=== PATIENT | male | born 1975 | race Caucasian/White ===

== ENCOUNTER 2016-07-16 19:44 | Emergency (ER) | payer SELFPAY ==
[~2016-07-16] VITALS: Ht 165.1 cm; Wt 83.9 kg
[2016-07-16 22:30] LABS: BASOPHILS % (AUTO) 0.5 % (0.0-2.0); DIFF TOTAL % 100 %; EOSINOPHILS # (AUTO) 0.1 /CMM (0.0-0.7); EOSINOPHILS % (AUTO) 2.1 % (0.0-6.0); HEMATOCRIT 44 % (39-51); HEMOGLOBIN 14.5 g/dL (13.5-17.5); LYMPHOCYTES # (AUTO) 1.7 /CMM (0.8-4.8); LYMPHOCYTES % (AUTO) 27.7 % (20.0-44.0); MEAN CORPUSCULAR HEMOGLOBIN 30 PG (26.0-33.0); MEAN CORPUSCULAR HGB CONC 33 g/dl (31.0-36.0); MEAN CORPUSCULAR VOLUME 90 fL (80-96); MONOCYTES # (AUTO) 0.5 /CMM (0.1-1.30); NEUTROPHILS # (AUTO) 3.8 /CMM (1.8-8.9); NEUTROPHILS % (AUTO) 61.7 % (43.0-81.0); PLATELET COUNT (AUTO) 216 /CMM (150-450); RED BLOOD CELL COUNT(AUTO) 4.85 MIL/uL (4.5-6.0); WHITE BLOOD COUNT (AUTO) 6.1 K/uL (4.3-11.0)
[2016-07-16] MEDS ORDERED: Magnesium 1 GM/2 ML VIAL IV ONE (22:30)
[2016-07-16 22:37] LABS: ANION GAP 11 (5-14); CALCIUM, SERUM 8.3 mg/dL (8.5-10.1); CARBON DIOXIDE 28 mmol/L (21-32); CHLORIDE 108 mmol/L (98-107); GFR 82 mL/min (>60); GLUCOSE 143 mg/dL (74-106); POTASSIUM 3.4 mmol/L (3.5-5.1); SODIUM SERUM 144 mmol/L (136-145); UREA NITROGEN, BLOOD 13 mg/dL (7-18)
[2016-07-16 22:43] LABS: ACETAMINOPHEN 0 ug/ml (10-30); ALANINE AMINOTRANSFERASE 32 U/L (12-78); ALBUMIN 3.5 g/dL (3.4-5.0); ASPARTATE AMINOTRANSFERASE 24 U/L (15-37); BILIRUBIN,DIRECT 0.1 mg/dL (0.0-0.2); BILIRUBIN,TOTAL 0.4 mg/dL (0.2-1.0); INDIRECT BILIRUBIN 0.3 mg/dL (0.0-1.1); SALICYLATE 0.7 mg/dL (2.8-20.0); TOTAL PROTEIN, SERUM 7.1 g/dL (6.4-8.2)
[2016-07-16 22:44] LABS: TROPONIN I < 0.017 ng/mL (0.00-0.056)
[2016-07-16] MEDS ORDERED: IV SET PRIMARY PUMP SET 1 EA INFUS.SET MC ONE (22:44)
[2016-07-16] MEDS ORDERED: Magnesium 1GM/D5W 100ML PREMIX 200 ML IV ONE (22:45)
[2016-07-16 22:50] LABS: THYROID STIMULATING HORMONE 0.841 uIU/mL (0.358-3.74)
[2016-07-16 22:55] LABS: INR 0.92 (0.87-1.13); PROTHROMBIN TIME 9.9 SECS (9.5-12.7)
[2016-07-16] MEDS ORDERED: OLANZAPINE 10 MG VIAL IM ONE (23:44)
[2016-07-16] MEDS ORDERED: WATER FOR INJECTION,STERILE 10 ML ONE (23:45)
[2016-07-17] MEDS ORDERED: OLANZAPINE 10 MG VIAL IM ONE
[2016-07-17] MEDS ORDERED: IV SET PRIMARY 1 EA INFUS.SET MC ONE (00:10)
[2016-07-17] MEDS ORDERED: IV NS 0.9% 1,000 ML ONE (00:11)
[2016-07-17 06:06] VITALS: BP 128/67
== END 2016-07-17 05:30 | disposition home or self-care (01) ==
LOC: ER 19:45
DX: F31.9 Bipolar disorder, unspecified (principal); Z88.8 Allergy status to other drugs, medicaments and biological substances
CPT/HCPCS: 36415; 70450; 80048; 80076; 80329; 82140; 84443; 84484; 85025; 85730; 93005; 96365; 96372; 99285; A4606; G0480 ×2; J3475; J3490; J7030; Z7610; G6039-TC

== ENCOUNTER → 2016-07-16 | Emergency (ER) | payer SELFPAY | END | disposition left against medical advice (07) | LOC: ER 16:37 | DX: Z53.21 Procedure and treatment not carried out due to patient leaving prior to being seen by health care provider (principal) | CPT/HCPCS: 82962; A4606; Z7610 ==

== ENCOUNTER 2016-11-25 20:56 | Emergency (ER) | payer OTHER ==
[~2016-11-25] VITALS: Ht 165.1 cm; Wt 86.2 kg
[2016-11-25 21:00] VITALS: BP 140/80
[2016-11-25 21:25] LABS: BASOPHILS # (AUTO) 0.1 /CMM (0.0-0.2); EOSINOPHILS # (AUTO) 0.1 /CMM (0.0-0.7); EOSINOPHILS % (AUTO) 1.1 % (0.0-6.0); HEMATOCRIT 46 % (39-51); HEMOGLOBIN 15.5 g/dL (13.5-17.5); LYMPHOCYTES # (AUTO) 1.6 /CMM (0.8-4.8); LYMPHOCYTES % (AUTO) 27.4 % (20.0-44.0); MEAN CORPUSCULAR HEMOGLOBIN 31 PG (26.0-33.0); MEAN CORPUSCULAR HGB CONC 34 g/dl (31.0-36.0); MEAN CORPUSCULAR VOLUME 91 fL (80-96); MONOCYTES # (AUTO) 0.4 /CMM (0.1-1.30); MONOCYTES % (AUTO) 7.5 % (2.0-12.0); NEUTROPHILS # (AUTO) 3.6 /CMM (1.8-8.9); PLATELET COUNT (AUTO) 236 /CMM (150-450); RDW COEFFICIENT OF VARIATION 13.3 (11.5-15.0); RED BLOOD CELL COUNT(AUTO) 5.05 MIL/uL (4.5-6.0); WHITE BLOOD COUNT (AUTO) 5.8 K/uL (4.3-11.0)
[2016-11-25 21:34] LABS: CALCIUM, SERUM 7.9 mg/dL (8.5-10.1); CREATININE 0.9 mg/dL (0.6-1.3); POTASSIUM 3.4 mmol/L (3.5-5.1)
== END 2016-11-25 22:12 | disposition home or self-care (01) ==
LOC: ER 21:01
DX: F32.9 Major depressive disorder, single episode, unspecified (principal); L65.9 Nonscarring hair loss, unspecified
CPT/HCPCS: 36415; 80048-TC; 84443-TC; 85025-TC; A4606; Z7610